=== PATIENT | female | born 1980 | race Caucasian/White ===

== ENCOUNTER → 2018-11-13 | Outpatient (CLI) | payer BC ==
[2018-11-13 15:36] LABS: Urine Bacteria FEW /hpf (None Seen); Urine Blood Negative /uL (Negative); Urine Mucus FEW (None Seen); Urine WBC 3 /hpf (0 - 5)
[2018-11-13 15:42] LABS: BUN/Creatinine Ratio 19.2; Calcium 9.2 mg/dL (8.5-10.1); Magnesium 2.1 mg/dL (1.6-2.6); Potassium 3.8 mmol/L (3.5-5.1); Uric Acid 5.2 mg/dL (2.6-6.0)
[2018-11-13 15:46] LABS: Bilirubin, Total 0.4 mg/dL (0.2-1.0)
[2018-11-13 15:50] LABS: % Iron Saturation 18.4 % (15-50)
[2018-11-13 15:56] LABS: Free T4 (Free Thyroxine) 1.03 ng/dL (0.89-1.76)
== END | disposition home or self-care (01) ==
LOC: LAB 14:19
PROVIDERS: ATTEND Internal Medicine
DX: Z76.89 Persons encountering health services in other specified circumstances (principal)
CPT/HCPCS: 36415; 80053; 80061; 81001; 82306; 82607; 83540; 83550; 83735; 84439; 84443; 84550; 86706; 86735; 86762; 86765; 86787; 87086

== ENCOUNTER → 2018-11-19 | Outpatient (CLI) | payer BC ==
[2018-11-19 15:40] LABS: Basophils # (auto) 0 uL; Basophils % (auto) 0.2 % (0.0-2.0); Eosinophils # (auto) 0.1 uL; Eosinophils % (auto) 1.9 % (0.0-7.0); Hematocrit 39.4 % (36.0-46.0); Hemoglobin 12.9 g/dL (12.2-16.2); Lymphocytes # (auto) 1.9 uL; Lymphocytes % (auto) 26.3 % (10.0-50.0); Mean Corpuscular Hemoglobin 28.9 pg (28.0-32.0); Mean Corpuscular Hgb Conc. 32.9 g/dL (32.0-36.0); Mean Corpuscular Volume 87.9 fL (80.0-100.0); Monocytes # (auto) 0.5 uL; Monocytes % (auto) 6.7 % (0.0-12.0); Neutrophils # (auto) 4.6 uL; Neutrophils % (auto) 64.9 % (37.0-80.0); Nucleated Red Blood Cells % 0.1 %; Platelet Count (auto) 251 10^3/uL (140-450); Red Blood Cells 4.48 10^6/uL (4.0-5.20); Red Cell Distribution Width 13.5 % (11.8-14.3); White Blood Cell 7.1 10^3/uL (4.4-10.8)
== END | disposition home or self-care (01) ==
LOC: LAB 14:46
PROVIDERS: ATTEND Internal Medicine
DX: Z76.89 Persons encountering health services in other specified circumstances (principal)
CPT/HCPCS: 36415; 83036; 85025

== ENCOUNTER → 2019-01-17 | Outpatient (CLI) | payer BC | END | disposition home or self-care (01) | LOC: US 10:04 | DX: N63.42 Unspecified lump in left breast, subareolar (principal); N60.02 Solitary cyst of left breast | CPT/HCPCS: 10022; 19081; 76942; 82043 ==

== ENCOUNTER → 2019-02-25 | Outpatient (CLI) | payer BC ==
[2019-02-25 11:34] LABS: Basophils # (auto) 0 uL; Basophils % (auto) 0.3 % (0.0-2.0); Eosinophils # (auto) 0.1 uL; Eosinophils % (auto) 2.5 % (0.0-7.0); Hematocrit 38.5 % (36.0-46.0); Hemoglobin 12.6 g/dL (12.2-16.2); Lymphocytes # (auto) 1.8 uL; Lymphocytes % (auto) 32.8 % (10.0-50.0); Mean Corpuscular Hemoglobin 28.9 pg (28.0-32.0); Mean Corpuscular Hgb Conc. 32.9 g/dL (32.0-36.0); Mean Corpuscular Volume 87.9 fL (80.0-100.0); Monocytes # (auto) 0.4 uL; Monocytes % (auto) 7.4 % (0.0-12.0); Neutrophils # (auto) 3.1 uL; Nucleated Red Blood Cells % 0.1 %; Platelet Count (auto) 238 10^3/uL (140-450); Red Blood Cells 4.38 10^6/uL (4.0-5.20); Red Cell Distribution Width 13.6 % (11.8-14.3); White Blood Cell 5.5 10^3/uL (4.4-10.8)
== END | disposition home or self-care (01) ==
LOC: LAB 10:37
PROVIDERS: ATTEND Specialist
DX: N39.9 Disorder of urinary system, unspecified (principal)
CPT/HCPCS: 36415; 84443; 85025

== ENCOUNTER → 2019-05-09 | Outpatient (CLI) | payer BC ==
[~2019-05-09] MED LIST: CHLO25TA22 PO; HYDR-4833 PO; NAP500T PO; PANT40TA2 PO
== END | disposition home or self-care (01) ==
LOC: XYW 07:49 → EDSTATUS 05-29 12:10
PROVIDERS: ATTEND Internal Medicine
DX: I11.9 Hypertensive heart disease without heart failure (principal)
CPT/HCPCS: 93306

== ENCOUNTER → 2019-06-27 | Outpatient (CLI) | payer BC ==
[~2019-06-27] VITALS: Ht 177.8 cm; Wt 108.9 kg
[~2019-06-27] MED LIST changes: +ADENOSINE 91 MG in GIVE UN-DILUTED 0 ML IV STA
== END | disposition home or self-care (01) ==
LOC: XY 08:20
PROVIDERS: ATTEND Internal Medicine
DX: R07.89 Other chest pain (principal); I10 Essential (primary) hypertension; E78.5 Hyperlipidemia, unspecified; E66.9 Obesity, unspecified; K21.9 Gastro-esophageal reflux disease without esophagitis; K44.9 Diaphragmatic hernia without obstruction or gangrene
CPT/HCPCS: 78452; 93017; A9500; J0153

== ENCOUNTER 2019-07-06 07:01 | Emergency (ER) | payer BC ==
[~2019-07-06] VITALS: Ht 177.8 cm; Wt 111.1 kg
[~2019-07-06 07:01] MED LIST changes: -ADENOSINE 91 MG in GIVE UN-DILUTED 0 ML IV STA
[2019-07-06 07:29] VITALS: BP 154/83
== END 2019-07-06 08:16 | disposition home or self-care (01) ==
LOC: ER 07:01
DX: S63.611A Unspecified sprain of left index finger, initial encounter (principal); Z79.899 Other long term (current) drug therapy; X50.1XXA Overexertion from prolonged static or awkward postures, initial encounter; Y93.72 Activity, wrestling; Y92.89 Other specified places as the place of occurrence of the external cause; Y99.8 Other external cause status
CPT/HCPCS: 29130; 73140

== ENCOUNTER → 2020-02-10 | Outpatient (CLI) | payer BC ==
[2020-02-10 12:40] LABS: Basophils # (auto) 0 10 ^3/uL (0-0.2); Basophils % (auto) 0.2 % (0.0-2.0); Eosinophils # (auto) 0.1 10 ^3/uL (0-0.8); Eosinophils % (auto) 2.3 % (0.0-7.0); Hematocrit 37.1 % (36.0-46.0); Hemoglobin 12.4 g/dL (12.2-16.2); Lymphocytes # (auto) 1.9 10 ^3/uL (0.4-5.4); Lymphocytes % (auto) 31.4 % (10.0-50.0); Mean Corpuscular Hemoglobin 29.5 pg (28.0-32.0); Mean Corpuscular Hgb Conc. 33.4 g/dL (32.0-36.0); Mean Corpuscular Volume 88.5 fL (80.0-100.0); Monocytes # (auto) 0.3 10 ^3/uL (0-1.3); Monocytes % (auto) 5.5 % (0.0-12.0); Neutrophils # (auto) 3.7 10 ^3/uL (1.6-8.6); Neutrophils % (auto) 60.6 % (37.0-80.0); Platelet Count (auto) 240 10^3/uL (140-450); Red Blood Cells 4.19 10^6/uL (4.0-5.20); Red Cell Distribution Width 13.5 % (11.8-14.3); White Blood Cell 6.2 10^3/uL (4.4-10.8)
[2020-02-10 13:34] LABS: Albumin 3.7 g/dL (3.4-5.0); Calcium 9.2 mg/dL (8.5-10.1); Potassium 3.4 mmol/L (3.5-5.1)
[2020-02-10 13:38] LABS: BUN/Creatinine Ratio 15.9; Bilirubin, Total 0.3 mg/dL (0.2-1.0); Total Protein 7.4 g/dL (6.4-8.2)
[2020-02-10 13:43] LABS: Follicle Stimulating Hormone 5.16 IU/L (SEE BELOW); Leuteinizing Hormone 4.9 IU/L; Prolactin 6.81 ng/mL (2.8-29.2)
== END | disposition home or self-care (01) ==
LOC: LAB 11:50
PROVIDERS: ATTEND Obstetrics & Gynecology
DX: N64.52 Nipple discharge (principal); I10 Essential (primary) hypertension; E78.5 Hyperlipidemia, unspecified
CPT/HCPCS: 36415; 80053; 80061; 82670; 83001; 83002; 84146; 84403; 85025

== ENCOUNTER → 2020-02-27 | Outpatient (CLI) | payer BC ==
[2020-02-27 11:08] LABS: Uric Acid 3.8 mg/dL (2.6-6.0)
[2020-02-27 11:17] LABS: CRP High Sensitivity 1.18 mg/dL (< 0.3)
== END | disposition home or self-care (01) ==
LOC: LAB 10:13
PROVIDERS: ATTEND Internal Medicine
DX: E55.9 Vitamin D deficiency, unspecified (principal); R51.9 Headache, unspecified; M79.646 Pain in unspecified finger(s)
CPT/HCPCS: 36415; 82306; 84146; 84443; 84550; 85652; 86038; 86141; 86431

== ENCOUNTER → 2020-03-04 | Outpatient (CLI) | payer BC | END | disposition home or self-care (01) | LOC: LAB 11:33 | PROVIDERS: ATTEND Specialist | DX: D35.2 Benign neoplasm of pituitary gland (principal) | CPT/HCPCS: 36415; 82565; 84520 ==

== ENCOUNTER → 2020-07-06 | Outpatient (CLI) | payer BC ==
[~2020-07-06] MED LIST changes: +CHLO25TA2 PO; -CHLO25TA22 PO
== END | disposition home or self-care (01) ==
LOC: LAB 11:53
PROVIDERS: ATTEND Specialist
DX: N64.52 Nipple discharge (principal)
CPT/HCPCS: 36415; 84146; 84443

== ENCOUNTER 2021-08-03 10:33 | Emergency (ER) | payer BC ==
[~2021-08-03] VITALS: Ht 177.8 cm; Wt 117.9 kg
[2021-08-03 12:06] LABS: Urine Bacteria NONE SEEN /hpf (None Seen); Urine Blood Negative /uL (Negative); Urine Specific Gravity 1.015 (1.001-1.035); Urine WBC 1 /hpf (0 - 5)
[2021-08-03 12:13] LABS: Albumin 3.8 g/dL (3.4-5.0)
[2021-08-03 12:18] LABS: BUN/Creatinine Ratio 11.5; Bilirubin, Total 0.3 mg/dL (0.2-1.0); Total Protein 7.8 g/dL (6.4-8.2)
[2021-08-03 12:20] LABS: Basophils # (auto) 0 10 ^3/uL (0-0.2); Basophils % (auto) 0.2 % (0.0-2.0); Eosinophils # (auto) 0.1 10 ^3/uL (0-0.8); Eosinophils % (auto) 1.6 % (0.0-7.0); Hematocrit 40.2 % (36.0-46.0); Hemoglobin 13.4 g/dL (12.2-16.2); Lymphocytes # (auto) 1.4 10 ^3/uL (0.4-5.4); Lymphocytes % (auto) 28.3 % (10.0-50.0); Mean Corpuscular Hemoglobin 28.1 pg (28.0-32.0); Mean Corpuscular Hgb Conc. 33.4 g/dL (32.0-36.0); Mean Corpuscular Volume 84.2 fL (80.0-100.0); Monocytes # (auto) 0.4 10 ^3/uL (0-1.3); Monocytes % (auto) 9.3 % (0.0-12.0); Neutrophils # (auto) 2.9 10 ^3/uL (1.6-8.6); Neutrophils % (auto) 60.6 % (37.0-80.0); Red Blood Cells 4.78 10^6/uL (4.0-5.20); Red Cell Distribution Width 13.9 % (11.8-14.3); White Blood Cell 4.8 10^3/uL (4.4-10.8)
[2021-08-03] MEDS ORDERED: IOHEXOL 350 MG/ML 100ML IJ ONE (12:37)
[2021-08-03 12:47] VITALS: BP 141/93
[2021-08-03] MEDS ORDERED: ONDA-180 PO (13:23)
[2021-08-03] MEDS ORDERED: HYDR-4902 PO ×2 (13:23→15:16)
[2021-08-03] MEDS: ONDANSETRON HCL 4 MG/2 ML VIAL IV ONE ×2 (13:27→13:37)
[2021-08-03] MEDS ORDERED: ALUM & MAG HYDROX-SIMETH LIQ(MAALOX) 30 ML PO ONE (13:30)
[2021-08-03] MEDS ORDERED: SUCRALFATE 1 GM TAB PO ONE (13:30)
== END 2021-08-03 15:45 | disposition home or self-care (01) ==
LOC: ER 10:33
DX: I88.0 Nonspecific mesenteric lymphadenitis (principal); N20.0 Calculus of kidney; K44.9 Diaphragmatic hernia without obstruction or gangrene; I10 Essential (primary) hypertension
CPT/HCPCS: 36415; 74176; 80053; 81001; 81025; 83690; 85025; 96374; 99284; J2405

== ENCOUNTER → 2021-08-05 | Outpatient (CLI) | payer BC ==
[~2021-08-05] MED LIST changes: +HYDR-4902 PO; +ONDA-180 PO
[2021-08-05 16:04] LABS: Basophils # (auto) 0.1 10 ^3/uL (0-0.2); Eosinophils # (auto) 0.1 10 ^3/uL (0-0.8); Eosinophils % (auto) 1.8 % (0.0-7.0); Hematocrit 36.8 % (36.0-46.0); Hemoglobin 12.3 g/dL (12.2-16.2); Lymphocytes % (auto) 28.7 % (10.0-50.0); Mean Corpuscular Hemoglobin 28.1 pg (28.0-32.0); Mean Corpuscular Hgb Conc. 33.5 g/dL (32.0-36.0); Mean Corpuscular Volume 83.8 fL (80.0-100.0); Monocytes # (auto) 0.5 10 ^3/uL (0-1.3); Monocytes % (auto) 6.8 % (0.0-12.0); Neutrophils # (auto) 4.2 10 ^3/uL (1.6-8.6); Neutrophils % (auto) 60.7 % (37.0-80.0); Nucleated Red Blood Cells % 0.1 %; Red Blood Cells 4.39 10^6/uL (4.0-5.20); Red Cell Distribution Width 14.2 % (11.8-14.3); White Blood Cell 6.9 10^3/uL (4.4-10.8)
[2021-08-05 16:50] LABS: Albumin 3.8 g/dL (3.4-5.0)
[2021-08-05 16:54] LABS: Bilirubin, Direct 0.1 mg/dL (0-0.2); Bilirubin, Total 0.2 mg/dL (0.2-1.0); Total Protein 7.4 g/dL (6.4-8.2)
== END | disposition home or self-care (01) ==
LOC: LAB 15:46
PROVIDERS: ATTEND Internal Medicine
DX: N20.0 Calculus of kidney (principal); E78.5 Hyperlipidemia, unspecified
CPT/HCPCS: 36415; 80076; 82150; 83690; 85025

== ENCOUNTER → 2022-01-06 | Outpatient (CLI) | payer BC ==
[2022-01-06 09:54] LABS: Albumin 3.9 g/dL (3.4-5.0); Calcium 8.9 mg/dL (8.5-10.1)
[2022-01-06 09:59] LABS: Bilirubin, Total 0.3 mg/dL (0.2-1.0); Total Protein 7.4 g/dL (6.4-8.2)
== END | disposition home or self-care (01) ==
LOC: LAB 09:11
PROVIDERS: ATTEND Internal Medicine
DX: M79.644 Pain in right finger(s) (principal); E55.9 Vitamin D deficiency, unspecified
CPT/HCPCS: 36415; 80053; 80061; 82306; 84443; 84550; 85652

== ENCOUNTER → 2022-04-26 | Outpatient (CLI) | payer BC | END | disposition home or self-care (01) | LOC: XYW 08:59 | PROVIDERS: ATTEND Internal Medicine | DX: I51.7 Cardiomegaly (principal); R07.9 Chest pain, unspecified | CPT/HCPCS: 93306 ==

== ENCOUNTER 2022-06-22 09:29 | Day surgery (SDC) | payer BC ==
[2022-06-17 15:00] LABS: Basophils # (auto) 0 10 ^3/uL (0-0.2); Basophils % (auto) 0.3 % (0.0-2.0); Eosinophils # (auto) 0.1 10 ^3/uL (0-0.8); Eosinophils % (auto) 1.7 % (0.0-7.0); Hematocrit 37.6 % (36.0-46.0); Hemoglobin 12.6 g/dL (12.2-16.2); Lymphocytes # (auto) 2.1 10 ^3/uL (0.4-5.4); Lymphocytes % (auto) 34.3 % (10.0-50.0); Mean Corpuscular Hemoglobin 29.7 pg (28.0-32.0); Mean Corpuscular Hgb Conc. 33.6 g/dL (32.0-36.0); Mean Corpuscular Volume 88.3 fL (80.0-100.0); Monocytes # (auto) 0.5 10 ^3/uL (0-1.3); Monocytes % (auto) 7.4 % (0.0-12.0); Neutrophils # (auto) 3.5 10 ^3/uL (1.6-8.6); Neutrophils % (auto) 56.3 % (37.0-80.0); Red Blood Cells 4.26 10^6/uL (4.0-5.20); Red Cell Distribution Width 14.5 % (11.8-14.3); White Blood Cell 6.2 10^3/uL (4.4-10.8)
[2022-06-17 15:11] LABS: Albumin 3.7 g/dL (3.4-5.0); Calcium 8.5 mg/dL (8.5-10.1); Potassium 4.1 mmol/L (3.5-5.1)
[2022-06-17 15:15] LABS: BUN/Creatinine Ratio 18.4; Bilirubin, Total 0.2 mg/dL (0.2-1.0); INR 0.97 (0.9-1.15); Partial Thromboplastin Time 27.7 sec (24.6-33.4); Total Protein 7.8 g/dL (6.4-8.2)
[2022-06-22] VITALS (7 sets, daily range): BP systolic 115–165; BP diastolic 90–107
[~2022-06-22] VITALS: Ht 177.8 cm; Wt 120.2 kg
[~2022-06-22 09:29] MED LIST changes: +AMIT1TAB34 PO; +CHOL20006 PO; +DILT240C35 PO; -HYDR-4833 PO; -HYDR-4902 PO; +LOSA25TA38 PO; +MEDR150I IM; +NIAC-10 PO; +ONDA-144 PO; -ONDA-180 PO; +SCOP1DIS TD
[2022-06-22] MEDS ORDERED: LIDOCAINE 1% HCL (LOCAL ANESTH.) INJ 20ML MDV ONE (10:19)
[2022-06-22] MEDS ORDERED: MIDAZOLAM HCL 2MG/2ML 2ml VIAL (1mg/ml) ONE (10:19)
[2022-06-22] MEDS ORDERED: VERAPAMIL 2.5MG/ML INJ 2ML VIAL IV ONE (10:19)
[2022-06-22] MEDS ORDERED: HEPARIN SODIUM (PORCINE) 5000 UNITS/ML 1ML VIAL ONE (10:19)
[2022-06-22] MEDS ORDERED: IODIXANOL 320MG/ML 100ML BTL IV ONE (10:19)
[2022-06-22] MEDS ORDERED: fentaNYL CITRATE 100 MCG/2 ML VL ONE (10:19)
[2022-06-22] MEDS ORDERED: LIDOCAINE 2%HCL (LOCAL ANESTH.) INJ 10ml MDV ONE (10:20)
== END 2022-06-22 13:51 | disposition home or self-care (01) ==
LOC: CATH 09:29
PROVIDERS: ATTEND Internal Medicine
DX: R07.9 Chest pain, unspecified (principal); I10 Essential (primary) hypertension; E78.3 Hyperchylomicronemia; E66.09 Other obesity due to excess calories; Z68.39 Body mass index [BMI] 39.0-39.9, adult; Z79.899 Other long term (current) drug therapy; Z20.822 Contact with and (suspected) exposure to COVID-19
CPT/HCPCS: 36415; 80053; 81025; 85025; 85610; 85730; 93458; C1769; C1887; C1894; J1644; J2001; J2250; J3010; Q9967; U0003; 99152

== ENCOUNTER → 2022-12-29 | Outpatient (CLI) | payer BC ==
[~2022-12-29] MED LIST changes: +AMIT10TA12 PO; -AMIT1TAB34 PO; +LOSA25TA15 PO; -LOSA25TA38 PO
[2022-12-29 09:49] LABS: Triglycerides 60 mg/dL (< 150)
[2022-12-29 09:50] LABS: LDL Cholesterol 130 mg/dL (< 100)
[2022-12-29 09:51] LABS: Cholesterol 171 mg/dL (< 200); HDL Cholesterol 42 mg/dL (40-59)
== END | disposition home or self-care (01) ==
LOC: LAB 09:00
PROVIDERS: ATTEND Internal Medicine
DX: Z12.11 Encounter for screening for malignant neoplasm of colon (principal); E78.5 Hyperlipidemia, unspecified
CPT/HCPCS: 36415; 80061; 82306

== ENCOUNTER → 2023-02-24 | Outpatient (CLI) | payer BC ==
[2023-02-24 14:08] LABS: Basophils # (auto) 0 10 ^3/uL (0-0.2); Eosinophils # (auto) 0.2 10 ^3/uL (0-0.8); Hemoglobin 9.9 g/dL (12.2-16.2); Monocytes # (auto) 0.6 10 ^3/uL (0-1.3); White Blood Cell 7.6 10^3/uL (4.4-10.8)
[2023-02-24 14:11] LABS: Basophils % (auto) 0.4 % (0.0-2.0); Eosinophils % (auto) 2.1 % (0.0-7.0); Hematocrit 30.8 % (36.0-46.0); Mean Corpuscular Hemoglobin 25.7 pg (28.0-32.0); Mean Corpuscular Hgb Conc. 32.1 g/dL (32.0-36.0); Monocytes % (auto) 8.1 % (0.0-12.0); Neutrophils # (auto) 4.8 10 ^3/uL (1.6-8.6); Neutrophils % (auto) 63.4 % (37.0-80.0); Red Blood Cells 3.85 10^6/uL (4.0-5.20); Red Cell Distribution Width 15.2 % (11.8-14.3)
== END | disposition home or self-care (01) ==
LOC: LAB 13:47
PROVIDERS: ATTEND Internal Medicine
DX: K62.5 Hemorrhage of anus and rectum (principal)
CPT/HCPCS: 36415; 85025

== ENCOUNTER → 2023-03-06 | Outpatient (CLI) | payer BC ==
[2023-03-06 11:57] LABS: Basophils # (auto) 0 10 ^3/uL (0-0.2); Eosinophils # (auto) 0.2 10 ^3/uL (0-0.8); Hemoglobin 9.8 g/dL (12.2-16.2); Mean Corpuscular Hemoglobin 25.3 pg (28.0-32.0); Neutrophils # (auto) 3.3 10 ^3/uL (1.6-8.6); Nucleated Red Blood Cells % 0.1 %; Red Blood Cells 3.89 10^6/uL (4.0-5.20)
[2023-03-06 12:00] LABS: Basophils % (auto) 0.3 % (0.0-2.0); Eosinophils % (auto) 3.3 % (0.0-7.0); Hematocrit 30.6 % (36.0-46.0); Lymphocytes # (auto) 2.3 10 ^3/uL (0.4-5.4); Lymphocytes % (auto) 36.1 % (10.0-50.0); Mean Corpuscular Hgb Conc. 32.1 g/dL (32.0-36.0); Mean Corpuscular Volume 78.7 fL (80.0-100.0); Monocytes # (auto) 0.4 10 ^3/uL (0-1.3); Neutrophils % (auto) 53.3 % (37.0-80.0); Red Cell Distribution Width 15.3 % (11.8-14.3); White Blood Cell 6.3 10^3/uL (4.4-10.8)
[2023-03-06 12:34] LABS: Alanine Aminotransferase 15 U/L (7-40); Albumin 4.6 g/dL (3.2-4.8); Alkaline Phosphatase 92 U/L (46-116); Anion Gap 7 (5-15); Aspartate Aminotransferase 11 U/L (13-40); BUN/Creatinine Ratio 16.5 (10.0-20.0); Bilirubin, Total 0.4 mg/dL (0.2-1.0); Blood Urea Nitrogen 13 mg/dL (9-23); Calcium 9.2 mg/dL (8.5-10.1); Carbon Dioxide 25 mmol/L (20-30); Chloride 107 mmol/L (98-107); Cholesterol 154 mg/dL (< 200); Glucose 92 mg/dL (74-106); HDL Cholesterol 39 mg/dL (40-59); LDL Cholesterol 108 mg/dL (< 100); Potassium 3.8 mmol/L (3.5-5.1); Sodium 139 mmol/L (136-145); Total Protein 7.3 g/dL (5.7-8.2); Triglycerides 50 mg/dL (< 150)
== END | disposition home or self-care (01) ==
LOC: LAB 11:33
PROVIDERS: ATTEND Internal Medicine
DX: E55.9 Vitamin D deficiency, unspecified (principal); E78.5 Hyperlipidemia, unspecified; K62.5 Hemorrhage of anus and rectum
CPT/HCPCS: 36415; 80053; 80061; 82306; 85025

== ENCOUNTER 2023-10-24 10:31 | Day surgery (SDC) | payer BC ==
[2023-10-23 14:45] LABS: Basophils # (auto) 0 10 ^3/uL (0-0.2); Eosinophils # (auto) 0.1 10 ^3/uL (0-0.8); Hemoglobin 10.9 g/dL (12.2-16.2); Lymphocytes # (auto) 2.3 10 ^3/uL (0.4-5.4); Mean Corpuscular Volume 76.3 fL (80.0-100.0); Monocytes # (auto) 0.5 10 ^3/uL (0-1.3)
[2023-10-23 14:47] LABS: Basophils % (auto) 0.3 % (0.0-2.0); Eosinophils % (auto) 1.2 % (0.0-7.0); Hematocrit 34.1 % (36.0-46.0); Lymphocytes % (auto) 27.8 % (10.0-50.0); Mean Corpuscular Hemoglobin 24.4 pg (28.0-32.0); Mean Corpuscular Hgb Conc. 31.9 g/dL (32.0-36.0); Monocytes % (auto) 6.5 % (0.0-12.0); Neutrophils # (auto) 5.3 10 ^3/uL (1.6-8.6); Neutrophils % (auto) 64.2 % (37.0-80.0); Red Blood Cells 4.47 10^6/uL (4.0-5.20); Red Cell Distribution Width 17.4 % (11.8-14.3); White Blood Cell 8.3 10^3/uL (4.4-10.8)
[2023-10-23 14:57] LABS: INR 1.03 (0.9-1.15); Partial Thromboplastin Time 28.5 SEC (24.5-34.5); Prothrombin Time 10.9 sec (9.3-11.8); Urine Bacteria FEW /hpf (None Seen); Urine Blood Negative /uL (Negative); Urine Clarity Clear (Clear); Urine Color Light-Yellow (Yellow); Urine Mucus FEW (None Seen); Urine Protein, UAD TRACE (Negative); Urine Specific Gravity 1.029 (1.001-1.035); Urine Urobilinogen Normal (Negative); Urine WBC 4 /hpf (0 - 5); Urine pH 5.5 (5.0-9.0)
[2023-10-23 15:21] LABS: Alanine Aminotransferase 16 U/L (7-40); Albumin 4.9 g/dL (3.2-4.8); Alkaline Phosphatase 131 U/L (46-116); Anion Gap 6 (5-15); Aspartate Aminotransferase < 8 U/L (13-40); BUN/Creatinine Ratio 23.2 (10.0-20.0); Blood Urea Nitrogen 19 mg/dL (9-23); Calcium 10.1 mg/dL (8.5-10.1); Carbon Dioxide 25 mmol/L (20-30); Chloride 109 mmol/L (98-107); Glucose 94 mg/dL (74-106); Sodium 140 mmol/L (136-145)
[2023-10-23 15:22] LABS: Bilirubin, Total 0.3 mg/dL (0.2-1.0); Total Protein 7.7 g/dL (5.7-8.2)
[~2023-10-24] VITALS: Ht 177.8 cm; Wt 122.5 kg
[~2023-10-24 10:31] MED LIST changes: +ATOR-507 PO; -CHLO25TA2 PO; -LOSA25TA15 PO; -NAP500T PO; -NIAC-10 PO; -ONDA-144 PO; -SCOP1DIS TD
[2023-10-24] MEDS ORDERED: ceFAZolin 2 GM/D5W50ml 50 ML IV ONE (12:39)
[2023-10-24] MEDS ORDERED: BUPIVACAINE 0.5% MPF INJ 30ML SDV IJ ONE (14:27)
[2023-10-24] MEDS ORDERED: fentaNYL CITRATE 5 ML ONE (15:44)
[2023-10-24] MEDS ORDERED: MIDAZOLAM HCL 2MG/2ML 2ml VIAL (1mg/ml) ONE (15:44)
[2023-10-24] MEDS ORDERED: ROCURONIUM 10MG/ML 10ML VIAL IV ONE (16:17)
[2023-10-24] MEDS ORDERED: PROPOFOL 10 MG/ML 20 ML IV ONE (16:17)
[2023-10-24] MEDS ORDERED: ONDANSETRON HCL 4 MG/2 ML VIAL ONE (16:18)
[2023-10-24] MEDS ORDERED: LIDOCAINE 1% INJ PF 5ML AMP ONE (16:18)
[2023-10-24] MEDS: BUPIVACAINE 0.5% MPF INJ 30ML SDV IJ ONE (17:06)
[2023-10-24] MEDS ORDERED: hydrALAZINE HCL 20 MG/ML VL IV PRN (18:00)
[2023-10-24] MEDS ORDERED: HYDROmorphone HCL 2 MG/ML VL/or syr IV PRN (18:00)
[2023-10-24] MEDS ORDERED: HYDROmorphone HCL 2 MG/ML VL/or syr ONE (18:09)
[2023-10-24] MEDS ORDERED: GLYCOPYRROLATE 0.2 MG/ML 1ML VIAL ONE (18:44)
[2023-10-24] MEDS ORDERED: NEOSTIGMINE 1 MG/ML INJ (10mg/10ML VIAL) ONE (18:44)
[2023-10-24 18:45] VITALS: TEMP 97.9; O2SAT 93
[2023-10-24] MEDS: HYDROmorphone HCL 2 MG/ML VL/or syr IV PRN (18:57)
[2023-10-24 21:30] VITALS: BP 150/86; PULSE 62; RESP 22; O2SAT 95
[2023-10-24] MEDS: ONDANSETRON HCL 4 MG/2 ML VIAL IV ONE (21:30)
== END 2023-10-24 21:52 | disposition home or self-care (01) ==
LOC: SUR 10:31
PROVIDERS: ATTEND Orthopaedic Surgery Sports Medicine
DX: S52.572A Other intraarticular fracture of lower end of left radius, initial encounter for closed fracture (principal); K21.9 Gastro-esophageal reflux disease without esophagitis; E78.5 Hyperlipidemia, unspecified; I10 Essential (primary) hypertension; E66.01 Morbid (severe) obesity due to excess calories; Z98.891 History of uterine scar from previous surgery; Z79.899 Other long term (current) drug therapy; Z98.890 Other specified postprocedural states; Z68.39 Body mass index [BMI] 39.0-39.9, adult; W19.XXXA Unspecified fall, initial encounter; Y93.22 Activity, ice hockey; Y92.89 Other specified places as the place of occurrence of the external cause; Y99.8 Other external cause status
CPT/HCPCS: 25609; 36415; 73100; 80053; 81001; 84702; 85025; 85610; 85730; C1713; J0690; J1170; J2250; J2405; J2704; J3010; J3490; 76000

== ENCOUNTER → 2024-01-24 | Outpatient (CLI) | payer BC ==
[2024-01-24 11:12] LABS: Basophils # (auto) 0 10 ^3/uL (0-0.2); Eosinophils # (auto) 0.1 10 ^3/uL (0-0.8); Hemoglobin 11.1 g/dL (12.2-16.2); Lymphocytes # (auto) 1.9 10 ^3/uL (0.4-5.4); Mean Corpuscular Volume 77.9 fL (80.0-100.0); Monocytes # (auto) 0.4 10 ^3/uL (0-1.3); Neutrophils # (auto) 3.7 10 ^3/uL (1.6-8.6); Platelet Count (auto) 244 10^3/uL (140-450); White Blood Cell 6.1 10^3/uL (4.4-10.8)
[2024-01-24 11:15] LABS: Basophils % (auto) 0.2 % (0.0-2.0); Eosinophils % (auto) 1.6 % (0.0-7.0); Hematocrit 33.5 % (36.0-46.0); Lymphocytes % (auto) 30.8 % (10.0-50.0); Mean Corpuscular Hemoglobin 25.9 pg (28.0-32.0); Mean Corpuscular Hgb Conc. 33.3 g/dL (32.0-36.0); Neutrophils % (auto) 61.4 % (37.0-80.0); Nucleated Red Blood Cells % 0.1 %; Red Cell Distribution Width 16.8 % (11.8-14.3)
[2024-01-24 11:43] LABS: Cholesterol 106 mg/dL (< 200)
[2024-01-24 11:45] LABS: Triglycerides 52 mg/dL (< 150)
[2024-01-24 11:46] LABS: LDL Cholesterol 55 mg/dL (< 100)
[2024-01-24 11:47] LABS: HDL Cholesterol 38 mg/dL (40-59)
== END | disposition home or self-care (01) ==
LOC: LAB 10:37
PROVIDERS: ATTEND Internal Medicine
DX: I10 Essential (primary) hypertension (principal); E78.5 Hyperlipidemia, unspecified; D64.9 Anemia, unspecified
CPT/HCPCS: 36415; 80061; 82306; 83036; 84443; 85025

== ENCOUNTER → 2024-02-23 | Outpatient (CLI) | payer BC | END | disposition home or self-care (01) | LOC: XYW 10:53 | PROVIDERS: ATTEND Internal Medicine | DX: I11.9 Hypertensive heart disease without heart failure (principal); E66.9 Obesity, unspecified | CPT/HCPCS: 93306 ==

== ENCOUNTER → 2024-06-11 | Day surgery (SDC) | payer BC ==
[2024-06-07 10:18] LABS: Basophils # (auto) 0 10 ^3/uL (0-0.2); Basophils % (auto) 0.3 % (0.0-2.0); Eosinophils # (auto) 0.2 10 ^3/uL (0-0.8); Lymphocytes # (auto) 1.2 10 ^3/uL (0.4-5.4); Monocytes # (auto) 0.6 10 ^3/uL (0-1.3); Neutrophils # (auto) 4.5 10 ^3/uL (1.6-8.6)
[2024-06-07 10:21] LABS: Eosinophils % (auto) 3.6 % (0.0-7.0); Hematocrit 33.6 % (36.0-46.0); Hemoglobin 10.9 g/dL (12.2-16.2); Lymphocytes % (auto) 18.6 % (10.0-50.0); Mean Corpuscular Hgb Conc. 32.5 g/dL (32.0-36.0); Mean Corpuscular Volume 80.1 fL (80.0-100.0); Monocytes % (auto) 9.5 % (0.0-12.0); Platelet Count (auto) 264 10^3/uL (140-450); Red Blood Cells 4.19 10^6/uL (4.0-5.20); Red Cell Distribution Width 15.4 % (11.8-14.3); White Blood Cell 6.6 10^3/uL (4.4-10.8)
[2024-06-07 10:44] LABS: Alanine Aminotransferase 26 U/L (7-40); Alkaline Phosphatase 124 U/L (46-116); Anion Gap 8 (5-15); BUN/Creatinine Ratio 15.8 (10.0-20.0); Blood Urea Nitrogen 15 mg/dL (9-23); Calcium 9.7 mg/dL (8.7-10.4); Carbon Dioxide 25 mmol/L (20-31); Chloride 107 mmol/L (98-107); Glucose 103 mg/dL (74-106); Potassium 3.7 mmol/L (3.5-5.1); Sodium 140 mmol/L (136-145)
[2024-06-07 10:45] LABS: Albumin 4.7 g/dL (3.2-4.8); Aspartate Aminotransferase 15 U/L (13-40)
[2024-06-07 10:46] LABS: Total Protein 7.2 g/dL (5.7-8.2)
[2024-06-07 10:51] LABS: Bilirubin, Total 0.2 mg/dL (0.2-1.0)
[2024-06-07 10:52] LABS: INR 0.99 (0.9-1.15); Partial Thromboplastin Time 27.9 SEC (24.5-34.5); Prothrombin Time 10.5 sec (9.3-11.8)
[2024-06-07 11:07] LABS: Urine Bacteria FEW /hpf (None Seen); Urine Blood Negative /uL (Negative); Urine Clarity Turbid (Clear); Urine Color Yellow (Yellow); Urine Mucus FEW (None Seen); Urine Protein, UAD TRACE (Negative); Urine Specific Gravity 1.039 (1.001-1.035); Urine Squamous Epithelial Cell MOD /hpf (<5); Urine Urobilinogen Normal (Negative); Urine WBC 3 /HPF (0-5); Urine pH 5.5 (5.0-9.0)
[~2024-06-11] VITALS: Ht 177.8 cm; Wt 127.0 kg
[~2024-06-11] MED LIST changes: +ACETAMINOPHEN IV 1000 MG/100ML (10MG/ML) IV PRN; +DexAMETHasone SOD PHOS 10MG/1ML VIAL INJ ONE; +MEPERIDINE HCL (25 MG/ML) 1ML VIAL IV PRN; +MEPERIDINE HCL (25 MG/ML) 1ML VIAL ONE; +ONDA-155 PO; +ONDANSETRON HCL 4 MG/2 ML VIAL IV ONE; +ONDANSETRON HCL 4 MG/2 ML VIAL ONE; +PROPOFOL 10 MG/ML 20 ML IV ONE; +VALS40TA2 PO; +ceFAZolin 2 GM/D5W100ml 100 ML IV ONE; +fentaNYL CITRATE 100 MCG/2 ML VL ONE
[2024-06-11] MEDS: BUPIVACAINE 0.25% INJ 50ML VIAL ONE (07:56)
[2024-06-11 08:40] VITALS: TEMP 97.3
[2024-06-11 09:00] VITALS: PULSE 88; RESP 12; O2SAT 95
[2024-06-11] MEDS: HYDROmorphone HCL 2 MG/ML VL/or syr IV PRN (09:00)
[2024-06-11 09:35] VITALS: BP 114/74; PULSE 78; RESP 17; O2SAT 94
--- NOTE | 2024-06-11 09:48 | DVHOP2 ---
Operative Report - 2 Report Details Date: 06/11/24 Preop Diagnosis: Retained symptomatic hardware left distal radius Postop Diagnosis: Retained symptomatic hardware left distal radius Surgeon: Placido Matthews MD Library Attendant: Mr. Edwards, physician assistant professor of chemistry Anesthesiologist: Dr Wayne Anesthesia: General Implant: None Consent: The patient was informed of the risks and benefits of the procedure. These include but are not limited to complications of anesthesia, postoperative infection, incomplete relief of symptoms, recurrence of symptoms, damage to blood vessels, nerves and tendons, deep venous thrombosis, pulmonary embolism and possible need for repeat surgery in the future. Complications: None Estimated Blood Loss: Less than 10 mL Indications for Surgery: The patient is a 43-year-old female who presented to the clinic with a history of persistent pain after open reduction internal fixation of a distal radius fracture. Clinical and radiological evaluation demonstrated completely healed distal radius fracture, anatomical reduction, possible slight prominence of the radial styloid screw. Patient did have significant tenderness right over the radial styloid. Nonoperative and operative management options were considered. Initially she was treated nonoperatively with observation alone. MRI was obtained that did show some edema of the flexor pollicis longus and extensor pollicis longus. Surgery in the form of removal of hardware was discussed with her. Pros and cons were discussed. Surgical complications including neurovascular injury, infection, arthrofibrosis, loss of limb or life were discussed and the patient decided to proceed with the surgical option. Name of Procedure Performed Left distal radius deep implant removal Procedure Details Procedure Details: The patient was identified in the preoperative holding area and the surgical site was marked. The consent was verified. She was brought into the operating room and placed supine on the operating table. General anesthesia was administered. Intravenous antibiotics were given. The extremity was prepped and draped in the usual sterile manner. A time-out was called to confirm that anterior patient, the nature of surgery, the site of surgery, the availability of implants and x-rays and allergies to medications. Incision was made with the previous scar. The skin and the subcutaneous tissue were dissected. The deep fascia was incised. The radial artery and the median nerve were carefully retracted on either side. The flexor pollicis longus was retracted. The brachioradialis was retracted laterally. The pronator quadratus muscle was elevated off the plate. Dissection was carried out very gently to ensure appropriate hemostasis. The screws were removed uneventfully. Some dense scar tissue was noted over the flexor pollicis longus that was carefully released. No undue prominence of the implant was noted. No tendon tears were noted. The hardware was removed uneventfully. C-arm images were obtained to confirm. Irrigation was given. The skin incision was closed with 2-0 Vicryl and 3-0 Monocryl. Sterile dressing was applied. Condition Good Disposition Home PLACIDO MATTHEWS MD Jun 11, 2024 09:48
--- NOTE | 2024-06-11 14:58 | DVH ---
XY C ARM FLUOROSCOPY UP TO 60MIN, HISTORY: LT WRIST HARDWARE REMOVAL TECHNICAL DATA: 6 intraoperative fluoroscopic spot images were obtained of the wrist.. COMPARISON: XY C ARM FLUOROSCOPY UP TO 60MIN on DOS: 10/24/23 FINDINGS/IMPRESSION: C-arm fluoroscopic images were obtained for anatomic localization. The images are of low resolution b ut demonstrate instrumentation over the wrist . Total fluoroscopy time was 5.7 seconds. Please see th e operative report for further details.
== END | disposition home or self-care (01) ==
LOC: SUR 06:20
PROVIDERS: ATTEND Orthopaedic Surgery Sports Medicine
DX: T84.84XA Pain due to internal orthopedic prosthetic devices, implants and grafts, initial encounter (principal); I10 Essential (primary) hypertension; E78.5 Hyperlipidemia, unspecified; E66.01 Morbid (severe) obesity due to excess calories; K21.9 Gastro-esophageal reflux disease without esophagitis; Z68.35 Body mass index [BMI] 35.0-35.9, adult; Z98.891 History of uterine scar from previous surgery; Z98.890 Other specified postprocedural states; Z79.899 Other long term (current) drug therapy; Z82.49 Family history of ischemic heart disease and other diseases of the circulatory system; Y83.8 Other surgical procedures as the cause of abnormal reaction of the patient, or of later complication, without mention of misadventure at the time of the procedure
CPT/HCPCS: 20680; 36415; 73100; 80053; 81001; 85025; 85610; 85730; J1100; J1171; J2175; J2405; J2704; J3010; 76000; J3490

== ENCOUNTER → 2024-12-16 | Outpatient (CLI) | payer BC ==
[~2024-12-16] MED LIST changes: -ACETAMINOPHEN IV 1000 MG/100ML (10MG/ML) IV PRN; -DexAMETHasone SOD PHOS 10MG/1ML VIAL INJ ONE; -MEPERIDINE HCL (25 MG/ML) 1ML VIAL IV PRN; -MEPERIDINE HCL (25 MG/ML) 1ML VIAL ONE; -ONDANSETRON HCL 4 MG/2 ML VIAL IV ONE; -ONDANSETRON HCL 4 MG/2 ML VIAL ONE; -PROPOFOL 10 MG/ML 20 ML IV ONE; -ceFAZolin 2 GM/D5W100ml 100 ML IV ONE; -fentaNYL CITRATE 100 MCG/2 ML VL ONE
[2024-12-16 11:29] LABS: Urine Protein, UAD Negative (Negative)
[2024-12-16 11:46] LABS: Triglycerides 47 mg/dL (< 150)
[2024-12-16 11:48] LABS: Cholesterol 100 mg/dL (< 200); HDL Cholesterol 38 mg/dL (40-59)
== END | disposition home or self-care (01) ==
LOC: LAB 10:47
PROVIDERS: ATTEND Internal Medicine
DX: I10 Essential (primary) hypertension (principal); E78.5 Hyperlipidemia, unspecified
CPT/HCPCS: 36415; 80061; 81001; 82306; 83036